=== PATIENT | female | born 1975 | race Native Hawaiian/Other Pacific Islander ===

== ENCOUNTER 2018-03-09 11:12 | Outpatient (CLI) | payer OTHER | END 2018-03-09 19:37 | disposition home or self-care (01) | LOC: RAD 11:12 | DX: M25.521 Pain in right elbow (principal) ==

== ENCOUNTER 2019-06-06 16:00 | Emergency (ER) | payer OTHER ==
[~2019-06-06] VITALS: Ht 154.9 cm; Wt 55.3 kg
[2019-06-06 17:05] VITALS: BP 120/88; TEMP 98.1
== END 2019-06-06 17:13 | disposition home or self-care (01) ==
LOC: ED 16:00
DX: S62.605A Fracture of unspecified phalanx of left ring finger, initial encounter for closed fracture (principal); W22.8XXA Striking against or struck by other objects, initial encounter; Y93.89 Activity, other specified; Y92.69 Other specified industrial and construction area as the place of occurrence of the external cause
CPT/HCPCS: 99282

== ENCOUNTER 2022-07-29 07:43 | Emergency (ER) | payer OTHER ==
[~2022-07-29] VITALS: Ht 157.5 cm; Wt 57.2 kg
[2022-07-29 07:50] VITALS: TEMP 96.4
[2022-07-29 09:22] LABS: PLATELET COUNT 312 K/uL (152-353)
[2022-07-29 09:42] LABS: POTASSIUM 3.9 mmol/L (3.6-5.2)
[2022-07-29 12:54] VITALS: BP 147/90
== END 2022-07-29 12:59 | disposition home or self-care (01) ==
LOC: ED 07:43
PROVIDERS: Emergency Medicine
DX: S30.1XXA Contusion of abdominal wall, initial encounter (principal); W22.8XXA Striking against or struck by other objects, initial encounter; Y92.89 Other specified places as the place of occurrence of the external cause
CPT/HCPCS: 80053; 81002; 83690; 85027; 96374; 96375; 99284; J1885; J2270; J2405; Q9963